=== PATIENT | male | born 1955 | race Caucasian/White ===

== ENCOUNTER 2017-02-04 00:54 | Inpatient (IN) | payer MEDICAID ==
[~2017-02-04] VITALS: Ht 177.8 cm; Wt 90.0 kg
--- NOTE | ~2017-02-04 | CN ---
PATIENT NAME:EDWIGE KRISHNAN MEDICAL RECORD: [id number] : 51 LOCATION:[id number] ADMIT DATE: 02/04/17 ACCOUNT: [id number] CONSULTING PHYSICIAN: ANNIE VENEGAS MD REFERRING PHYSICIAN: GILMA RAMOS MD DATE OF CONSULTATION: 02/12/2017 IDENTIFYING DATA: The patient is 61 years old and he is admitted to the hospital on a voluntary basis. CHIEF COMPLAINT: "My belly hurts." HISTORY OF PRESENT ILLNESS: The patient is a very unfortunate man, who is a long-term alcoholic. He had a girlfriend who lived with him for more than 3 decades and they both drank excessively. She 3 weeks ago. I am not clear about the circumstances, but I believe it was related to alcohol abuse. The patient is clearly very depressed. He cries, he says that he does not care if he lives or dies, but denies that he would seek to harm himself or others. He has a number of serious medical problems including hypokalemia, hyperbilirubinemia, anemia, and acute renal failure. The patient also has some significantly abnormal liver functions, also almost certainly associated with alcohol abuse. He has been making a number of confused even delusional statements about not knowing he is in the hospital, thinking he is in a car and needs to get out of the car. He remembers that his girlfriend is at this point, but earlier he did not have any recollection of this. MENTAL STATUS EXAMINATION: The patient is awake, alert and oriented to person, place and somewhat to time and situation. His mood is depressed. His affect is constricted. Thought processes are circumstantial. Memory, concentration and abstraction abilities are at least moderately impaired. He denies thoughts of harming himself or others as well as overt psychotic symptoms. ASSESSMENT: 1. Major depression. 2. Alcoholism. 3. Alcohol-related dementia. 4. Delirium secondary to multiple medical factors. PLAN: At this time, the patient is not acutely dangerous in some direct way. His complaints of abdominal pain seem excessive, but it may certainly be related to some low level pancreatitis or other gastrointestinal issue. I do not detect any history of narcotic addiction, but certainly the alcoholism is a major factor in his current presentation. He has been in the hospital too long for this to be an alcohol withdrawal delirium. I suspect that many of these symptoms are related to his underlying toxic metabolic abnormalities and the fact that he is just profoundly depressed. I am going to start him on an antidepressant and an oral antipsychotic to help organize his thoughts. At this point, it would be appropriate for him to go to a behavioral unit, although I doubt he would be willing to go on a voluntary basis and at this point, he is far too medically sick to be admitted. He is nonambulatory. He cannot feed himself. Unfortunately, it would seem that once he is calm, the most likely setting that he is going to end up in is a alf. I did not approach this subject with him since he does not know me, he is clearly upset and he is telling me about how much he misses his girlfriend and hates that she has . His long-term prognosis is guarded. I think the initial goals would be to CONSULT REPORT [id number] EDWIGE KRISHNAN address his medical and neurologic issues of course and then start him on the antidepressant and try and calm him enough so that he could be placed in a long-term care facility. TRANSINT:[id number] Voice Confirmation ID: [id number] DOCUMENT ID: [id number] ANNIE VENEGAS MD at 0944 CC: [id number] DICTATION DATE: 02/12/17 1255 STEPDOWN NURSE: 02/12/17 1319 ADM IN [facility] [address] [place] [address]
--- NOTE | ~2017-02-04 | HP ---
PATIENT: EDWIGE KRISHNAN MEDICAL RECORD: [id number] ACCOUNT: [id number] LOCATION:[id number] : 51 ADMISSION DATE: 02/04/17 HISTORY AND PHYSICAL EXAMINATION REASON FOR ADMISSION: Vomiting, abdominal pain, and intoxication. HISTORY OF PRESENT ILLNESS: The patient is a 61-year-old male. He has previously been seen at [facility]. He was there approximately a month ago for chest pain, but signed out AMA twice. Ultimately, he was seen by cardio and was felt to have a GI source for his chest pain, but did not allow EGD. He had an ultrasound of his liver at that time, which showed hepatic steatosis. He apparently has been more distraught recently, he said his significant other of 30 years of alcoholism a few weeks ago. He stated for last 2 days, he has had nausea with some vomiting, but no hematemesis or diarrhea or melena. He states he is unable to eat or drink and just feels very fatigued. He was seen by the ED physician who felt the patient needed to be hospitalized because of intoxication and abnormal laboratory work including hemoglobin of 9.2, potassium of 3.2, magnesium of 1, calcium 5.3, bilirubin of 3.53. His blood alcohol level is 179. PAST MEDICAL HISTORY: Obtained from [facility]; chronic alcoholism with alcohol abuse, tobacco abuse, essential hypertension, hypothyroidism, GERD, parathyroidectomy, atypical chest pain, and essential hypertension, obstructive sleep apnea, alcoholic liver disease, paroxysmal atrial fib, chronic systolic congestive heart failure. PAST SURGICAL HISTORY: Appendectomy, parathyroidectomy, thyroidectomy, cataract extraction bilateral eyes. SOCIAL HISTORY: Significant other just he states. He is a current smoker, half pack a day and drinks 21 shots of liquor i.e. vodka a week, but says he is not an alcoholic. Denies other drug use. FAMILY HISTORY: Mother of alcoholism. Father's history is unknown. He said he has some family living in the [facility]. MEDICATIONS: He is unsure of his meds currently, but list from [facility] shows vitamin E 50,000 units weekly, cyanocobalamin 100 mcg tablet p.o. daily, calcium carbonate 500 mg p.o. b.i.d., calcitriol 0.5 mcg capsule b.i.d., famotidine 20 mg p.o. b.i.d., atorvastatin 80 mg at bedtime, carvedilol 3.125 mg p.o. b.i.d., thiamine 100 mg p.o. daily, albuterol sulfate inhaler 1-2 puff p.o. inhaled p.r.n. shortness of breath q.4-6 hours, and aspirin 81 mg daily. REVIEW OF SYSTEMS: GENERAL: The patient does feels fatigued and vomiting for 2 days. He denies fever. HEENT: No recent visual change, sinus congestion. Does complain of sore throat. RESPIRATORY: No SOB or cough. CARDIAC: No exertional chest pain, claudication, or edema. GASTROINTESTINAL: Nausea with vomiting as mentioned. No hemetemesis, melena, change in stools, blood per rectum, or severe abdominal pain. GENITOURINARY: Nocturia once nightly. Denies dysuria. ENDOCRINE: Denies polyuria, polydipsia, heat or cold intolerance. HISTORY AND PHYSICAL [id number] EDWIGE KRISHNAN NEUROLOGIC: Denies headache, confusion, motor or sensory deficits. MUSCULOSKELETAL: Complains of chronic low back pain. PSYCHIATRIC: Admits to some depressed mood. PHYSICAL EXAMINATION: VITAL SIGNS: Blood pressure 110/70, heart rate 90 and regular, respirations are 18, sats 94% on room air. GENERAL: The patient is disheveled appearing, but awake and answering questions appropriately. HEENT: Normocephalic. Eyes are clear with lens implants both eyes. His sclerae are somewhat icteric. Oropharynx shows dry mucous membranes, erythema in the posterior pharynx. No blood in the pharynx noted. NECK: Supple, without bruits. CHEST: Distant breath sounds without wheeze. HEART: Regular rate without murmur. ABDOMEN: Mildly distended, minimally tender in the epigastrium. Bowel sounds are hyperactive. He has active stool in the bed, which is brown. EXTREMITIES: No CC&E. NEUROLOGICAL: He is oriented to person and place, but not time. No motor deficits are appreciated. Gait was not testable. SKIN: Nonicteric. LABORATORY DATA AND DIAGNOSTIC STUDIES: His UA is slightly cloudy, specific gravity 1.025, 1+ protein, 2+ bilirubin, 0-5 white and red cells, moderate bacteria. Ammonia is 12. White count 6800, H&H is 9.2 and 27.1, platelet count 101,000. Potassium is 3.2, BUN and creatinine are 51 and 2.5, and calcium is 5.3. Bilirubin is 3.52 total. AST is 328, ALT is 111, alkaline phosphatase is 151. Alcohol quantitative is 179.0. IMAGING: Noncontrast CT of the brain shows no infarct. Noncontrast abdominal CT shows some sludge in the gallbladder, hepatic steatosis, otherwise unremarkable. ASSESSMENT: 1. [id number] alcoholism with intoxication. 2. Acute renal insufficiency, etiology unknown, possibly due to prerenal azotemia. 3. Malnutrition. 4. Thrombocytopenia, most likely due to alcoholic liver disease. 5. Gastroesophageal reflux disease. 6. Essential hypertension. 7. Anemia, etiology unknown. 8. Hypocalcemia with history of parathyroidectomy just likely due to medication noncompliance. 3. History of systolic dysfunction with EF of 40% on echo 2010 with moderate MR and AR. PLAN: The patient will be hydrated and placed on banana bag. He will have renal consult, electrolytes correction, further workup pending clinical course. TRANSINT:[id number] Voice Confirmation ID: [id number] DOCUMENT ID: [id number] HISTORY AND PHYSICAL [id number] EDWIGE KRISHNAN TIMOTHY MD at 0554 CC: [id number] DICTATION DATE: 02/04/17828 [employer]: 02/04/17 1057 ADM IN [facility] [address] [place] [address]
[2017-02-04 01:42] LABS: BASOPHILS 0.3 % (0-2); EOSINOPHILS 0 % (0-7); HEMATOCRIT 27.1 % (42.0-54.0); HEMOGLOBIN 9.2 g/dL (13.5-17.5); IMMATURE GRANULOCYTES 1.6 % (0-5); LYMPHOCYTES 13.5 % (15-50); MCH 33.8 pg (26.0-34.0); MCHC 33.9 g/dL (31.0-37.0); MCV 99.6 fL (80.0-100.0); MEAN PLATELET VOLUME 11.3 fL (7.4-10.4); MONOCYTES 7.1 % (2-11); NEUTROPHILS 77.5 % (40-80); PLATELET COUNT 101 10x3/uL (130-400); RBC 2.72 10x6/uL (4.20-6.10); RDW 17.6 % (11.5-14.5); WBC 6.8 10x3/uL (4.8-10.8)
[2017-02-04 01:55] LABS: ALBUMIN 3.7 g/dL (3.4-5.0); ANION GAP 27.8 mmol/L (8-16); BILIRUBIN - TOTAL 3.52 mg/dL (0.2-1.3); CARBON DIOXIDE 21.4 mmol/L (21.0-32.0); CREATININE - SERUM 2.5 mg/dL (0.6-1.3); POTASSIUM - SERUM 3.2 mmol/L (3.5-5.1); PROTEIN - SERUM 7.9 g/dL (6.4-8.2)
[2017-02-04 02:00] LABS: CALCIUM 5.3 mg/dL (8.5-10.1)
[2017-02-04 04:03] LABS: UDS - AMPHET NEGATIVE QUAL (NEGATIVE); UDS - BARB NEGATIVE QUAL (NEGATIVE); UDS - BENZO NEGATIVE QUAL (NEGATIVE); UDS - COCAINE NEGATIVE QUAL (NEGATIVE); UDS - OPIATE NEGATIVE QUAL (NEGATIVE); UDS - PCP NEGATIVE QUAL (NEGATIVE); UDS - THC NEGATIVE QUAL (NEGATIVE)
[2017-02-04 04:04] LABS: APPEARANCE SLT CLOUDY (CLEAR); BILIRUBIN 2+ (NEGATIVE); COLOR DK YELLOW (YELLOW); GLUCOSE NEGATIVE (NEGATIVE); KETONE NEGATIVE (NEGATIVE); NITRITE NEGATIVE (NEGATIVE); PROTEIN 1+ mg/dL (NEGATIVE); SPECIFIC GRAVITY 1.025 (1.005-1.020)
[2017-02-04 04:06] LABS: BACTERIA MODERATE /hpf (NONE SEEN); EPITHELIAL CELLS 0-5 /hpf (0-5); GRANULAR CAST 0-5 /lpf (NONE SEEN); HYALINE CAST 0-5 /lpf (NONE SEEN); RED CELLS - URINE 0-5 /hpf (0-5); WHITE CELLS - URINE 0-5 /hpf (0-5)
[2017-02-04 14:28] LABS: BASOPHILS 0.1 % (0-2); EOSINOPHILS 0 % (0-7); HEMATOCRIT 26.8 % (42.0-54.0); HEMOGLOBIN 8.9 g/dL (13.5-17.5); IMMATURE GRANULOCYTES 1.2 % (0-5); LYMPHOCYTES 6.6 % (15-50); MCHC 33.2 g/dL (31.0-37.0); MEAN PLATELET VOLUME 10.6 fL (7.4-10.4); MONOCYTES 6.8 % (2-11); NEUTROPHILS 85.3 % (40-80); PLATELET COUNT 88 10x3/uL (130-400); RBC 2.62 10x6/uL (4.20-6.10); RDW 17.7 % (11.5-14.5); WBC 7.7 10x3/uL (4.8-10.8)
[2017-02-04 14:31] LABS: MCV 102.3 fL (80.0-100.0)
[2017-02-04 14:46] LABS: PLATELET ESTIMATE DECREASED
[2017-02-04 14:50] LABS: ALBUMIN 3.3 g/dL (3.4-5.0); ANION GAP 24.3 mmol/L (8-16); BILIRUBIN - TOTAL 4.42 mg/dL (0.2-1.3); CARBON DIOXIDE 20.8 mmol/L (21.0-32.0); POTASSIUM - SERUM 3.1 mmol/L (3.5-5.1); PROTEIN - SERUM 7.1 g/dL (6.4-8.2)
[2017-02-04 14:51] LABS: CREATININE - SERUM 1.7 mg/dL (0.6-1.3); MAGNESIUM - SERUM 2.1 mg/dL (1.8-2.4)
[2017-02-04 14:55] LABS: CALCIUM 4.8 mg/dL (8.5-10.1)
[2017-02-04 15:50] VITALS: BP 102/58
[2017-02-04 18:14] VITALS: BP 102/58; BMI 23.0
[2017-02-04 20:00] VITALS: BP 138/84
[2017-02-04] MEDS ORDERED: ASPIRIN81 MG PO (20:16)
[2017-02-04] MEDS ORDERED: COREG 3.1253.125 MG PO (20:16)
[2017-02-04] MEDS ORDERED: PEPCID20 MG PO (20:17)
[2017-02-04] MEDS ORDERED: LIPITOR80 MG PO (20:17)
[2017-02-04] MEDS ORDERED: SYNTHROID75 MCG PO (20:18)
[2017-02-04] MEDS ORDERED: LISINOPRIL5 MG PO (20:19)
[2017-02-05 04:00] VITALS: BP 159/76
[2017-02-05 05:41] LABS: BASOPHILS 0.2 % (0-2); EOSINOPHILS 0.2 % (0-7); HEMATOCRIT 26.1 % (42.0-54.0); HEMOGLOBIN 8.7 g/dL (13.5-17.5); IMMATURE GRANULOCYTES 0.8 % (0-5); LYMPHOCYTES 10.5 % (15-50); MCH 34.5 pg (26.0-34.0); MCHC 33.3 g/dL (31.0-37.0); MCV 103.6 fL (80.0-100.0); MEAN PLATELET VOLUME 12.2 fL (7.4-10.4); MONOCYTES 7.1 % (2-11); NEUTROPHILS 81.2 % (40-80); RBC 2.52 10x6/uL (4.20-6.10); RDW 17.8 % (11.5-14.5); WBC 6.4 10x3/uL (4.8-10.8)
[2017-02-05 05:47] LABS: PLATELET COUNT 109 10x3/uL (130-400)
[2017-02-05 05:59] LABS: APTT 30.4 SECONDS (22.8-39.4); INR 1.31 (0.85-1.17); PROTIME 15.9 SECONDS (11.6-15.0)
[2017-02-05 06:08] LABS: ALBUMIN 3.2 g/dL (3.4-5.0); ANION GAP 19.8 mmol/L (8-16); BILIRUBIN - TOTAL 4.46 mg/dL (0.2-1.3); CARBON DIOXIDE 23.7 mmol/L (21.0-32.0); CREATININE - SERUM 1.8 mg/dL (0.6-1.3); POTASSIUM - SERUM 3.5 mmol/L (3.5-5.1)
[2017-02-05 06:30] LABS: CALCIUM 5.6 mg/dL (8.5-10.1)
[2017-02-05 12:24] VITALS: BP 113/53
[2017-02-05 13:16] LABS: HEPATITIS C ANTIBODY <0.1 (0.0-0.9)
[2017-02-05 13:39] VITALS: BMI 22.9
[2017-02-05 14:00] VITALS: Ht 177.8 cm; Wt 90.0 kg
[2017-02-05 15:00] VITALS: BP 120/64
[2017-02-05 19:30] VITALS: BP 117/61
[2017-02-06 03:30] VITALS: BP 124/72
[2017-02-06 04:38] LABS: BASOPHILS 0.2 % (0-2); EOSINOPHILS 0.4 % (0-7); HEMATOCRIT 30.5 % (42.0-54.0); HEMOGLOBIN 10.2 g/dL (13.5-17.5); IMMATURE GRANULOCYTES 0.8 % (0-5); LYMPHOCYTES 14.4 % (15-50); MCHC 33.4 g/dL (31.0-37.0); MCV 101.7 fL (80.0-100.0); MEAN PLATELET VOLUME 12.5 fL (7.4-10.4); NEUTROPHILS 77.2 % (40-80); PLATELET COUNT 96 10x3/uL (130-400); RDW 18.4 % (11.5-14.5)
[2017-02-06 04:42] LABS: WBC 4.7 10x3/uL (4.8-10.8)
[2017-02-06 05:14] LABS: ALBUMIN 3.1 g/dL (3.4-5.0); ANION GAP 18.7 mmol/L (8-16); BILIRUBIN - TOTAL 6.1 mg/dL (0.2-1.3); CARBON DIOXIDE 23.9 mmol/L (21.0-32.0); CREATININE - SERUM 2.2 mg/dL (0.6-1.3); POTASSIUM - SERUM 3.6 mmol/L (3.5-5.1); PROTEIN - SERUM 7.1 g/dL (6.4-8.2); THYROID STIMULATING HORMONE 5.94 uIU/mL (0.36-3.74)
[2017-02-06 05:17] LABS: CALCIUM 5.5 mg/dL (8.5-10.1)
[2017-02-06 15:01] VITALS: BP 136/93
[2017-02-06 15:25] LABS: APPEARANCE HAZY (CLEAR); BILIRUBIN NEGATIVE (NEGATIVE); COLOR AMBER (YELLOW); GLUCOSE NEGATIVE (NEGATIVE); KETONE NEGATIVE (NEGATIVE); NITRITE NEGATIVE (NEGATIVE); PROTEIN 2+ mg/dL (NEGATIVE); SPECIFIC GRAVITY 1.005 (1.005-1.020); UROBILINOGEN NORMAL (NORMAL)
[2017-02-06 15:28] LABS: WHITE CELLS - URINE 0-5 /hpf (0-5)
[2017-02-06 15:29] LABS: BACTERIA MODERATE /hpf (NONE SEEN); TRIPLE PHOSPHATE CRYSTALS >50 /hpf (NONE SEEN)
[2017-02-06 19:30] VITALS: BP 127/93
[2017-02-07] VITALS (7 sets, daily range): BP systolic 119–140; BP diastolic 55–87
[2017-02-07 05:27] LABS: BASOPHILS 0.5 % (0-2); EOSINOPHILS 1.3 % (0-7); HEMATOCRIT 32.3 % (42.0-54.0); HEMOGLOBIN 10.7 g/dL (13.5-17.5); LYMPHOCYTES 14.3 % (15-50); MCH 33.8 pg (26.0-34.0); MCHC 33.1 g/dL (31.0-37.0); MCV 101.9 fL (80.0-100.0); MEAN PLATELET VOLUME 13.8 fL (7.4-10.4); NEUTROPHILS 73.9 % (40-80); PLATELET COUNT 107 10x3/uL (130-400); RBC 3.17 10x6/uL (4.20-6.10); RDW 19.1 % (11.5-14.5)
[2017-02-07 05:33] LABS: WBC 6.1 10x3/uL (4.8-10.8)
[2017-02-07 05:59] LABS: ANION GAP 18.5 mmol/L (8-16); BILIRUBIN - TOTAL 6.8 mg/dL (0.2-1.3); CREATININE - SERUM 2.1 mg/dL (0.6-1.3); POTASSIUM - SERUM 3.5 mmol/L (3.5-5.1); PROTEIN - SERUM 6.9 g/dL (6.4-8.2)
[2017-02-07 06:04] LABS: CALCIUM 5.4 mg/dL (8.5-10.1)
[2017-02-07 06:21] LABS: INR 1.45 (0.85-1.17); PROTIME 17.2 SECONDS (11.6-15.0)
[2017-02-08 04:01] VITALS: BP 137/82
[2017-02-08 04:04] LABS: BASOPHILS 0.2 % (0-2); EOSINOPHILS 1.4 % (0-7); HEMOGLOBIN 10.8 g/dL (13.5-17.5); IMMATURE GRANULOCYTES 1.1 % (0-5); LYMPHOCYTES 15.1 % (15-50); MCH 34.8 pg (26.0-34.0); MCHC 33.8 g/dL (31.0-37.0); MCV 103.2 fL (80.0-100.0); MEAN PLATELET VOLUME 12.6 fL (7.4-10.4); NEUTROPHILS 70.2 % (40-80); PLATELET COUNT 112 10x3/uL (130-400); RDW 19.1 % (11.5-14.5); WBC 6.5 10x3/uL (4.8-10.8)
[2017-02-08 04:11] LABS: INR 1.38 (0.85-1.17); PROTIME 16.5 SECONDS (11.6-15.0)
[2017-02-08 04:17] LABS: ALBUMIN 2.8 g/dL (3.4-5.0); ANION GAP 16.2 mmol/L (8-16); BILIRUBIN - DIRECT 4.93 mg/dL (0.00-0.30); BILIRUBIN - INDIRECT 0.87 mg/dL (0.00-1.00); BILIRUBIN - TOTAL 5.8 mg/dL (0.2-1.3); CARBON DIOXIDE 23.9 mmol/L (21.0-32.0); CREATININE - SERUM 1.7 mg/dL (0.6-1.3); POTASSIUM - SERUM 3.1 mmol/L (3.5-5.1); PROTEIN - SERUM 6.5 g/dL (6.4-8.2)
[2017-02-08 04:21] LABS: CALCIUM 5.4 mg/dL (8.5-10.1)
[2017-02-08 08:10] LABS: MAGNESIUM - SERUM 2.5 mg/dL (1.8-2.4); PHOSPHOROUS 3.9 mg/dL (2.5-4.9)
[2017-02-08 08:21] VITALS: BP 137/86
[2017-02-08 13:24] VITALS: BP 135/77
[2017-02-08 16:07] VITALS: BP 125/86
[2017-02-08 20:00] VITALS: BP 129/79
[2017-02-09 04:00] VITALS: BP 119/78
[2017-02-09 05:50] LABS: ANION GAP 17.3 mmol/L (8-16); BASOPHILS 0.3 % (0-2); CARBON DIOXIDE 19.6 mmol/L (21.0-32.0); CREATININE - SERUM 1.4 mg/dL (0.6-1.3); EOSINOPHILS 1.3 % (0-7); HEMATOCRIT 32.6 % (42.0-54.0); HEMOGLOBIN 10.5 g/dL (13.5-17.5); IMMATURE GRANULOCYTES 1.5 % (0-5); LYMPHOCYTES 15.7 % (15-50); MAGNESIUM - SERUM 2.2 mg/dL (1.8-2.4); MCH 33.8 pg (26.0-34.0); MCHC 32.2 g/dL (31.0-37.0); MCV 104.8 fL (80.0-100.0); MEAN PLATELET VOLUME 13.6 fL (7.4-10.4); MONOCYTES 14.7 % (2-11); NEUTROPHILS 66.5 % (40-80); PHOSPHOROUS 3.4 mg/dL (2.5-4.9); PLATELET COUNT 104 10x3/uL (130-400); POTASSIUM - SERUM 3.9 mmol/L (3.5-5.1); RBC 3.11 10x6/uL (4.20-6.10); RDW 19.9 % (11.5-14.5); WBC 5.9 10x3/uL (4.8-10.8)
[2017-02-09 05:58] LABS: CALCIUM 5.6 mg/dL (8.5-10.1)
[2017-02-09 07:10] VITALS: BP 128/74
[2017-02-09 08:37] LABS: ALBUMIN 2.8 g/dL (3.4-5.0); BILIRUBIN - DIRECT 4.37 mg/dL (0.00-0.30); BILIRUBIN - INDIRECT 1.03 mg/dL (0.00-1.00); BILIRUBIN - TOTAL 5.4 mg/dL (0.2-1.3); PROTEIN - SERUM 6.1 g/dL (6.4-8.2)
[2017-02-09 10:38] LABS: INR 1.29 (0.85-1.17); PROTIME 15.6 SECONDS (11.6-15.0)
[2017-02-09 15:01] VITALS: BP 112/82
[2017-02-09 20:00] VITALS: BP 131/80
[2017-02-10 05:42] LABS: BASOPHILS 0.2 % (0-2); EOSINOPHILS 1.1 % (0-7); HEMATOCRIT 31.8 % (42.0-54.0); HEMOGLOBIN 10.5 g/dL (13.5-17.5); IMMATURE GRANULOCYTES 1.6 % (0-5); LYMPHOCYTES 14.4 % (15-50); MCH 34.1 pg (26.0-34.0); MCV 103.2 fL (80.0-100.0); MONOCYTES 14.6 % (2-11); NEUTROPHILS 68.1 % (40-80); PLATELET COUNT 115 10x3/uL (130-400); RBC 3.08 10x6/uL (4.20-6.10); RDW 19.5 % (11.5-14.5); WBC 4.5 10x3/uL (4.8-10.8)
[2017-02-10 05:55] LABS: INR 1.25 (0.85-1.17); PROTIME 15.2 SECONDS (11.6-15.0)
[2017-02-10 06:04] LABS: ALBUMIN 2.5 g/dL (3.4-5.0); ANION GAP 13.2 mmol/L (8-16); BILIRUBIN - DIRECT 3.75 mg/dL (0.00-0.30); BILIRUBIN - INDIRECT 0.75 mg/dL (0.00-1.00); BILIRUBIN - TOTAL 4.5 mg/dL (0.2-1.3); CARBON DIOXIDE 22.3 mmol/L (21.0-32.0); CREATININE - SERUM 1.3 mg/dL (0.6-1.3); POTASSIUM - SERUM 3.5 mmol/L (3.5-5.1); PROTEIN - SERUM 6.2 g/dL (6.4-8.2)
[2017-02-10 06:38] LABS: CALCIUM 5.8 mg/dL (8.5-10.1)
[2017-02-10 08:08] VITALS: BP 136/78
[2017-02-10 13:08] VITALS: BP 142/81
[2017-02-10 16:02] VITALS: BP 143/75
[2017-02-10 20:00] VITALS: BP 138/78
[2017-02-11 04:00] VITALS: BP 136/84
[2017-02-11 08:14] VITALS: BP 146/80
[2017-02-11 13:19] VITALS: BP 155/86
[2017-02-11 15:43] VITALS: BP 147/86
[2017-02-11 20:00] VITALS: BP 116/81
[2017-02-12] VITALS (7 sets, daily range): BP systolic 122–159; BP diastolic 76–91
[2017-02-12 05:34] LABS: BASOPHILS 0.3 % (0-2); EOSINOPHILS 1.2 % (0-7); HEMATOCRIT 34.1 % (42.0-54.0); HEMOGLOBIN 11.2 g/dL (13.5-17.5); IMMATURE GRANULOCYTES 0.6 % (0-5); LYMPHOCYTES 14.5 % (15-50); MCH 33.8 pg (26.0-34.0); MCHC 32.8 g/dL (31.0-37.0); MONOCYTES 11.1 % (2-11); NEUTROPHILS 72.3 % (40-80); RBC 3.31 10x6/uL (4.20-6.10); RDW 19.1 % (11.5-14.5)
[2017-02-12 05:36] LABS: PLATELET COUNT 149 10x3/uL (130-400); WBC 6.4 10x3/uL (4.8-10.8)
[2017-02-12 05:51] LABS: ALBUMIN 2.7 g/dL (3.4-5.0); ANION GAP 14.3 mmol/L (8-16); BILIRUBIN - DIRECT 3.16 mg/dL (0.00-0.30); BILIRUBIN - INDIRECT 1.04 mg/dL (0.00-1.00); BILIRUBIN - TOTAL 4.2 mg/dL (0.2-1.3); CARBON DIOXIDE 22.1 mmol/L (21.0-32.0); CREATININE - SERUM 1.1 mg/dL (0.6-1.3); POTASSIUM - SERUM 3.4 mmol/L (3.5-5.1); PROTEIN - SERUM 6.6 g/dL (6.4-8.2)
[2017-02-12 05:54] LABS: CALCIUM 6.3 mg/dL (8.5-10.1)
[2017-02-12 12:15] LABS: AEROBE ID Final report (())
[2017-02-13 03:30] VITALS: BP 137/74
[2017-02-13 07:03] VITALS: BP 144/80
[2017-02-13 11:10] VITALS: BP 144/75
[2017-02-13 14:58] VITALS: BP 152/84
[2017-02-13 20:00] VITALS: BP 178/76
[2017-02-14] VITALS: BP 169/75
[2017-02-14 04:30] LABS: BASOPHILS 0.4 % (0-2); HEMATOCRIT 32.1 % (42.0-54.0); HEMOGLOBIN 10.6 g/dL (13.5-17.5); IMMATURE GRANULOCYTES 0.6 % (0-5); LYMPHOCYTES 15.6 % (15-50); MCH 34.1 pg (26.0-34.0); MCV 103.2 fL (80.0-100.0); MEAN PLATELET VOLUME 12.1 fL (7.4-10.4); MONOCYTES 9.3 % (2-11); NEUTROPHILS 73.1 % (40-80); RBC 3.11 10x6/uL (4.20-6.10); RDW 18.9 % (11.5-14.5); WBC 6.9 10x3/uL (4.8-10.8)
[2017-02-14 04:34] LABS: PLATELET COUNT 183 10x3/uL (130-400)
[2017-02-14 04:49] LABS: ALBUMIN 2.5 g/dL (3.4-5.0); ALKALINE PHOSPHATASE 336 U/L (46-116); ALT (SGPT) 122 U/L (10-68); BILIRUBIN - DIRECT 2.34 mg/dL (0.00-0.30); BILIRUBIN - INDIRECT 0.85 mg/dL (0.00-1.00); BILIRUBIN - TOTAL 3.19 mg/dL (0.2-1.3); CARBON DIOXIDE 24.6 mmol/L (21.0-32.0); CHLORIDE - SERUM 108 mmol/L (98-107); CREATININE - SERUM 0.9 mg/dL (0.6-1.3); GLUCOSE 95 mg/dL (74-106); MAGNESIUM - SERUM 1.2 mg/dL (1.8-2.4); POTASSIUM - SERUM 4.2 mmol/L (3.5-5.1); PROTEIN - SERUM 5.8 g/dL (6.4-8.2); SODIUM 143 mmol/L (136-145); eGFR NON AFRICAN AMERICAN > 90 mL/min (90-120)
[2017-02-14 05:00] VITALS: BP 166/70
[2017-02-14 05:03] LABS: CALC OSMOLALITY 285 mosm/kg (275-300); UREA NITROGEN 15 mg/dL (7-18)
[2017-02-14 09:02] VITALS: BP 155/75
[2017-02-14 11:49] VITALS: BP 139/72
[2017-02-14 16:07] LABS: AEROBE ID Final report (()); RESULT 1 Aerococcus urinae (())
[2017-02-14 16:49] VITALS: BP 165/85
[2017-02-14 20:00] VITALS: BP 143/75
[2017-02-15 04:00] VITALS: BP 149/70
[2017-02-15 05:49] LABS: MAGNESIUM - SERUM 1.3 mg/dL (1.8-2.4); PHOSPHOROUS 3.4 mg/dL (2.5-4.9)
[2017-02-15 07:13] VITALS: BP 158/86
[2017-02-15 11:02] VITALS: BP 137/74
[2017-02-15 14:50] LABS: AMYLASE - SERUM 94 U/L (25-115); LIPASE 551 U/L (73-393)
[2017-02-15 15:04] VITALS: BP 133/67
[2017-02-15 19:30] VITALS: BP 135/84
[2017-02-15 23:49] VITALS: BP 133/66
[2017-02-16 03:58] VITALS: BP 139/69
[2017-02-16 05:58] LABS: BASOPHILS 0.4 % (0-2); EOSINOPHILS 0.9 % (0-7); HEMATOCRIT 31.4 % (42.0-54.0); HEMOGLOBIN 10.2 g/dL (13.5-17.5); LYMPHOCYTES 14.9 % (15-50); MCH 34.2 pg (26.0-34.0); MCHC 32.5 g/dL (31.0-37.0); MCV 105.4 fL (80.0-100.0); MEAN PLATELET VOLUME 10.9 fL (7.4-10.4); MONOCYTES 9.3 % (2-11); NEUTROPHILS 73.5 % (40-80); PLATELET COUNT 199 10x3/uL (130-400); RBC 2.98 10x6/uL (4.20-6.10); RDW 18.1 % (11.5-14.5); WBC 7.7 10x3/uL (4.8-10.8)
[2017-02-16 07:19] LABS: ALBUMIN 2.2 g/dL (3.4-5.0); ALKALINE PHOSPHATASE 239 U/L (46-116); ALT (SGPT) 82 U/L (10-68); BILIRUBIN - TOTAL 1.63 mg/dL (0.2-1.3); CALC OSMOLALITY 280 mosm/kg (275-300); CARBON DIOXIDE 28.5 mmol/L (21.0-32.0); CHLORIDE - SERUM 106 mmol/L (98-107); GLUCOSE 81 mg/dL (74-106); PHOSPHOROUS 3.5 mg/dL (2.5-4.9); POTASSIUM - SERUM 3.9 mmol/L (3.5-5.1); PROTEIN - SERUM 5.8 g/dL (6.4-8.2); SODIUM 141 mmol/L (136-145); UREA NITROGEN 14 mg/dL (7-18); eGFR NON AFRICAN AMERICAN 80 mL/min (90-120)
[2017-02-16 07:22] LABS: CALCIUM 6.6 mg/dL (8.5-10.1)
[2017-02-16 09:32] VITALS: BP 125/68
[2017-02-16 13:27] VITALS: BP 122/61
[2017-02-16 16:41] VITALS: BP 125/70
[2017-02-16 23:00] VITALS: BP 140/78
[2017-02-17 02:30] VITALS: BP 133/72
[2017-02-17 05:00] VITALS: BP 144/70
[2017-02-17 06:49] LABS: BASOPHILS 0.1 % (0-2); EOSINOPHILS 0.9 % (0-7); IMMATURE GRANULOCYTES 0.6 % (0-5); LYMPHOCYTES 12.6 % (15-50); MCH 33.6 pg (26.0-34.0); MCHC 32.3 g/dL (31.0-37.0); MEAN PLATELET VOLUME 10.9 fL (7.4-10.4); MONOCYTES 8.5 % (2-11); NEUTROPHILS 77.3 % (40-80); PLATELET COUNT 208 10x3/uL (130-400); RBC 2.98 10x6/uL (4.20-6.10); RDW 17.9 % (11.5-14.5)
[2017-02-17 07:20] LABS: ALKALINE PHOSPHATASE 200 U/L (46-116); ALT (SGPT) 63 U/L (10-68); CARBON DIOXIDE 29.3 mmol/L (21.0-32.0); CHLORIDE - SERUM 105 mmol/L (98-107); CREATININE - SERUM 0.8 mg/dL (0.6-1.3); GLUCOSE 103 mg/dL (74-106); LIPASE 656 U/L (73-393); PHOSPHOROUS 2.7 mg/dL (2.5-4.9); POTASSIUM - SERUM 3.9 mmol/L (3.5-5.1); PROTEIN - SERUM 5.5 g/dL (6.4-8.2); SODIUM 140 mmol/L (136-145); eGFR NON AFRICAN AMERICAN > 90 mL/min (90-120)
[2017-02-17 07:30] LABS: AMYLASE - SERUM 119 U/L (25-115); CALC OSMOLALITY 280 mosm/kg (275-300); CALCIUM 6.9 mg/dL (8.5-10.1); MAGNESIUM - SERUM 1.4 mg/dL (1.8-2.4); UREA NITROGEN 18 mg/dL (7-18)
[2017-02-17 08:45] VITALS: BP 142/77
[2017-02-17 12:45] VITALS: BP 144/74
[2017-02-17 16:32] VITALS: BP 171/90
[2017-02-17 23:00] VITALS: BP 100/51
[2017-02-18 05:00] VITALS: BP 109/53
[2017-02-18 06:09] LABS: BASOPHILS 0.3 % (0-2); EOSINOPHILS 0.6 % (0-7); HEMATOCRIT 29.9 % (42.0-54.0); HEMOGLOBIN 9.8 g/dL (13.5-17.5); IMMATURE GRANULOCYTES 0.3 % (0-5); LYMPHOCYTES 10.8 % (15-50); MCH 34.1 pg (26.0-34.0); MCHC 32.8 g/dL (31.0-37.0); MCV 104.2 fL (80.0-100.0); MEAN PLATELET VOLUME 11.2 fL (7.4-10.4); MONOCYTES 7.1 % (2-11); NEUTROPHILS 80.9 % (40-80); PLATELET COUNT 210 10x3/uL (130-400); RBC 2.87 10x6/uL (4.20-6.10); RDW 17.3 % (11.5-14.5); WBC 8.6 10x3/uL (4.8-10.8)
[2017-02-18 06:42] LABS: ALBUMIN 2.3 g/dL (3.4-5.0); ALKALINE PHOSPHATASE 200 U/L (46-116); ALT (SGPT) 61 U/L (10-68); BILIRUBIN - TOTAL 1.47 mg/dL (0.2-1.3); CALC OSMOLALITY 277 mosm/kg (275-300); CALCIUM 7.8 mg/dL (8.5-10.1); CARBON DIOXIDE 32.2 mmol/L (21.0-32.0); CHLORIDE - SERUM 102 mmol/L (98-107); GLUCOSE 83 mg/dL (74-106); LIPASE 480 U/L (73-393); PHOSPHOROUS 2.9 mg/dL (2.5-4.9); PROTEIN - SERUM 5.7 g/dL (6.4-8.2); SODIUM 138 mmol/L (136-145); UREA NITROGEN 22 mg/dL (7-18); eGFR NON AFRICAN AMERICAN 80 mL/min (90-120)
[2017-02-18 06:46] LABS: POTASSIUM - SERUM 4.7 mmol/L (3.5-5.1)
[2017-02-18 09:16] LABS: APPEARANCE HAZY (CLEAR); BILIRUBIN NEGATIVE (NEGATIVE); COLOR YELLOW (YELLOW); GLUCOSE NEGATIVE (NEGATIVE); KETONE NEGATIVE (NEGATIVE); NITRITE NEGATIVE (NEGATIVE); PROTEIN NEGATIVE (NEGATIVE); UROBILINOGEN NORMAL (NORMAL)
[2017-02-18 09:18] LABS: BACTERIA MODERATE /hpf (NONE SEEN); EPITHELIAL CELLS 0-5 /hpf (0-5); MUCUS <1+ /lpf (NONE SEEN); YEAST >1+ WITH HYPHAE /hpf (NONE SEEN)
[2017-02-18 09:19] LABS: RED CELLS - URINE 0-5 /hpf (0-5)
[2017-02-18 12:45] VITALS: BP 152/64
[2017-02-18 16:56] VITALS: BP 110/56
[2017-02-18 20:00] VITALS: BP 107/50
[2017-02-19] VITALS: BP 126/62
[2017-02-19 04:00] VITALS: BP 120/62
[2017-02-19 07:05] LABS: BASOPHILS 0.5 % (0-2); EOSINOPHILS 0.8 % (0-7); HEMATOCRIT 28.5 % (42.0-54.0); HEMOGLOBIN 9.3 g/dL (13.5-17.5); IMMATURE GRANULOCYTES 0.2 % (0-5); MCH 33.7 pg (26.0-34.0); MCHC 32.6 g/dL (31.0-37.0); MCV 103.3 fL (80.0-100.0); MEAN PLATELET VOLUME 10.9 fL (7.4-10.4); NEUTROPHILS 79.5 % (40-80); PLATELET COUNT 192 10x3/uL (130-400); RBC 2.76 10x6/uL (4.20-6.10); RDW 16.9 % (11.5-14.5); WBC 8.3 10x3/uL (4.8-10.8)
[2017-02-19 07:26] LABS: ALBUMIN 2.4 g/dL (3.4-5.0); ANION GAP 7.5 mmol/L (8-16); BILIRUBIN - TOTAL 1.2 mg/dL (0.2-1.3); CALCIUM 7.9 mg/dL (8.5-10.1); CARBON DIOXIDE 33.6 mmol/L (21.0-32.0); CREATININE - SERUM 1.1 mg/dL (0.6-1.3); POTASSIUM - SERUM 4.1 mmol/L (3.5-5.1); PROTEIN - SERUM 6.2 g/dL (6.4-8.2)
[2017-02-19 07:59] VITALS: BP 157/94
[2017-02-19 12:23] VITALS: BP 140/73
[2017-02-19 15:52] VITALS: BP 130/66
[2017-02-19 20:00] VITALS: BP 142/70
[2017-02-20] VITALS: BP 139/69
[2017-02-20 05:00] VITALS: BP 144/72
[2017-02-20 05:30] LABS: ALBUMIN 2.3 g/dL (3.4-5.0); ALKALINE PHOSPHATASE 248 U/L (46-116); BILIRUBIN - TOTAL 1.31 mg/dL (0.2-1.3); CALC OSMOLALITY 276 mosm/kg (275-300); CALCIUM 7.9 mg/dL (8.5-10.1); CARBON DIOXIDE 30.4 mmol/L (21.0-32.0); CHLORIDE - SERUM 101 mmol/L (98-107); CREATININE - SERUM 0.9 mg/dL (0.6-1.3); GLUCOSE 111 mg/dL (74-106); PROTEIN - SERUM 6.2 g/dL (6.4-8.2); SODIUM 136 mmol/L (136-145); UREA NITROGEN 24 mg/dL (7-18); eGFR NON AFRICAN AMERICAN > 90 mL/min (90-120)
[2017-02-20 05:42] LABS: ALT (SGPT) 80 U/L (10-68); POTASSIUM - SERUM 5.2 mmol/L (3.5-5.1)
[2017-02-20 07:14] VITALS: BP 142/82
[2017-02-20 11:07] VITALS: BP 141/72
[2017-02-20 15:14] VITALS: BP 140/75
[2017-02-20 22:00] VITALS: BP 143/72
[2017-02-21 05:00] VITALS: BP 138/70
[2017-02-21 07:17] LABS: ANION GAP 8.9 mmol/L (8-16); CALCIUM 7.7 mg/dL (8.5-10.1); CARBON DIOXIDE 33.7 mmol/L (21.0-32.0); CREATININE - SERUM 1.1 mg/dL (0.6-1.3)
[2017-02-21 07:20] LABS: POTASSIUM - SERUM 3.6 mmol/L (3.5-5.1)
[2017-02-21 07:28] VITALS: BP 155/82
[2017-02-21 11:04] VITALS: BP 126/68
[2017-02-21 20:00] VITALS: BP 135/89
[2017-02-22] VITALS: BP 136/72
[2017-02-22 04:00] VITALS: BP 128/77
[2017-02-22 08:49] LABS: BASOPHILS 0.7 % (0-2); EOSINOPHILS 1.9 % (0-7); HEMATOCRIT 28.1 % (42.0-54.0); HEMOGLOBIN 9.3 g/dL (13.5-17.5); IMMATURE GRANULOCYTES 0.2 % (0-5); LYMPHOCYTES 18.5 % (15-50); MCH 33.8 pg (26.0-34.0); MCHC 33.1 g/dL (31.0-37.0); MCV 102.2 fL (80.0-100.0); MEAN PLATELET VOLUME 10.4 fL (7.4-10.4); MONOCYTES 10.8 % (2-11); NEUTROPHILS 67.9 % (40-80); PLATELET COUNT 179 10x3/uL (130-400); RBC 2.75 10x6/uL (4.20-6.10); RDW 16.2 % (11.5-14.5); WBC 5.7 10x3/uL (4.8-10.8)
[2017-02-22 08:51] VITALS: BP 155/74
[2017-02-22 09:03] LABS: ALBUMIN 2.4 g/dL (3.4-5.0); ALKALINE PHOSPHATASE 198 U/L (46-116); ALT (SGPT) 56 U/L (10-68); BILIRUBIN - TOTAL 1.15 mg/dL (0.2-1.3); CALC OSMOLALITY 278 mosm/kg (275-300); CALCIUM 7.8 mg/dL (8.5-10.1); CARBON DIOXIDE 34.4 mmol/L (21.0-32.0); CHLORIDE - SERUM 100 mmol/L (98-107); GLUCOSE 79 mg/dL (74-106); MAGNESIUM - SERUM 1.1 mg/dL (1.8-2.4); PHOSPHOROUS 3.5 mg/dL (2.5-4.9); POTASSIUM - SERUM 3.7 mmol/L (3.5-5.1); PROTEIN - SERUM 6.3 g/dL (6.4-8.2); SODIUM 139 mmol/L (136-145); UREA NITROGEN 19 mg/dL (7-18); eGFR NON AFRICAN AMERICAN 80 mL/min (90-120)
[2017-02-22 12:20] VITALS: BP 131/78
[2017-02-22 16:03] VITALS: BP 142/74
[2017-02-22 20:00] VITALS: BP 151/87
[2017-02-23] VITALS: BP 161/77
[2017-02-23 04:00] VITALS: BP 134/79
[2017-02-23 08:34] LABS: BASOPHILS 0.7 % (0-2); EOSINOPHILS 1.6 % (0-7); HEMATOCRIT 26.9 % (42.0-54.0); IMMATURE GRANULOCYTES 0.2 % (0-5); LYMPHOCYTES 17.8 % (15-50); MCH 33.8 pg (26.0-34.0); MCHC 33.5 g/dL (31.0-37.0); MCV 101.1 fL (80.0-100.0); MEAN PLATELET VOLUME 10.3 fL (7.4-10.4); MONOCYTES 9.8 % (2-11); NEUTROPHILS 69.9 % (40-80); PLATELET COUNT 175 10x3/uL (130-400); RBC 2.66 10x6/uL (4.20-6.10); RDW 16.2 % (11.5-14.5); WBC 5.5 10x3/uL (4.8-10.8)
[2017-02-23 09:01] LABS: ALBUMIN 2.4 g/dL (3.4-5.0); BILIRUBIN - TOTAL 1.13 mg/dL (0.2-1.3); CARBON DIOXIDE 34.7 mmol/L (21.0-32.0); CREATININE - SERUM 1.1 mg/dL (0.6-1.3); MAGNESIUM - SERUM 1.2 mg/dL (1.8-2.4); PHOSPHOROUS 3.7 mg/dL (2.5-4.9); POTASSIUM - SERUM 3.7 mmol/L (3.5-5.1); PROTEIN - SERUM 6.3 g/dL (6.4-8.2)
[2017-02-23 09:56] VITALS: BP 127/70
[2017-02-23 12:47] VITALS: BP 139/80
[2017-02-23] MEDS ORDERED: PROTONIX40 MG PO (13:51)
[2017-02-23] MEDS ORDERED: CARAFATE1 G/10 ML PO (13:52)
[2017-02-23] MEDS ORDERED: ROCALTROL0.25 MCG PO (13:52)
[2017-02-23] MEDS ORDERED: VITAMIN B-12100 MCG PO (13:52)
[2017-02-23] MEDS ORDERED: Vitamin D PO (13:52)
[2017-02-23] MEDS ORDERED: FOLIC ACID1 MG PO (13:53)
[2017-02-23] MEDS ORDERED: THERAGRAN M [BK1 TAB PO (13:53)
[2017-02-23] MEDS ORDERED: THIAMINE HCL50 MG PO (13:53)
[2017-02-23] MEDS ORDERED: LEXAPRO10 MG PO (13:53)
[2017-02-23] MEDS ORDERED: GEODON20 MG PO (13:54)
== END 2017-02-23 15:20 | disposition home health service (06) | DRG 896 ==
LOC: EDBD 00:54 → D.ER 00:54 → D.MS 05:58
PROVIDERS: Family Medicine; Internal Medicine Gastroenterology; Internal Medicine Nephrology
PROC: 0DB78ZX Excision of Stomach, Pylorus, Via Natural or Artificial Opening Endoscopic, Diagnostic (ICD-10-PCS; 2017-02-05)
PROC: 0DB98ZX Excision of Duodenum, Via Natural or Artificial Opening Endoscopic, Diagnostic (ICD-10-PCS; principal; 2017-02-05 08:00)
DX: F10.229 Alcohol dependence with intoxication, unspecified (principal); K29.71 Gastritis, unspecified, with bleeding; E46 Unspecified protein-calorie malnutrition; N17.9 Acute kidney failure, unspecified; E87.0 Hyperosmolality and hypernatremia; I50.22 Chronic systolic (congestive) heart failure; K86.0 Alcohol-induced chronic pancreatitis; F10.27 Alcohol dependence with alcohol-induced persisting dementia; Y90.6 Blood alcohol level of 120-199 mg/100 ml; F10.239 Alcohol dependence with withdrawal, unspecified; K70.11 Alcoholic hepatitis with ascites; E86.0 Dehydration; K70.40 Alcoholic hepatic failure without coma; I11.0 Hypertensive heart disease with heart failure; E03.9 Hypothyroidism, unspecified; K21.9 Gastro-esophageal reflux disease without esophagitis; G47.33 Obstructive sleep apnea (adult) (pediatric); Z68.23 Body mass index [BMI] 23.0-23.9, adult; D69.6 Thrombocytopenia, unspecified; E83.51 Hypocalcemia; Z91.19 Patient's noncompliance with other medical treatment and regimen; I34.0 Nonrheumatic mitral (valve) insufficiency; G20 Parkinson's disease; F17.200 Nicotine dependence, unspecified, uncomplicated; T88.59XA Other complications of anesthesia, initial encounter; Y83.8 Other surgical procedures as the cause of abnormal reaction of the patient, or of later complication, without mention of misadventure at the time of the procedure; R00.1 Bradycardia, unspecified; I95.9 Hypotension, unspecified; K44.9 Diaphragmatic hernia without obstruction or gangrene; K29.80 Duodenitis without bleeding; E87.6 Hypokalemia

== ENCOUNTER 2017-03-25 23:55 | Emergency (ER) | payer MEDICAID ==
[2017-02-05 14:00] VITALS: BMI 22.9
[~2017-03-25 23:55] MED LIST: ASPIRIN81 MG PO; CARAFATE1 G/10 ML PO; COREG 3.1253.125 MG PO; FOLIC ACID1 MG PO; GEODON20 MG PO; LEXAPRO10 MG PO; LIPITOR80 MG PO; LISINOPRIL5 MG PO; PEPCID20 MG PO; PROTONIX40 MG PO; ROCALTROL0.25 MCG PO; SYNTHROID75 MCG PO; THERAGRAN M [BK1 TAB PO; THIAMINE HCL50 MG PO; VITAMIN B-12100 MCG PO; Vitamin D PO
== END 2017-03-26 00:33 | disposition left against medical advice (07) ==
LOC: D.ER 23:55
DX: R07.9 Chest pain, unspecified (principal); F10.10 Alcohol abuse, uncomplicated; F17.200 Nicotine dependence, unspecified, uncomplicated; I48.91 Unspecified atrial fibrillation

== ENCOUNTER 2017-04-01 09:42 | Inpatient (IN) | payer MEDICAID | END 2017-04-08 15:19 | disposition home or self-care (01) | DRG 286 | LOC: D.ER 09:42 → D.SDCHOLD 12:51 → D.M2 16:41 | PROC: 4A023N7 Measurement of Cardiac Sampling and Pressure, Left Heart, Percutaneous Approach (ICD-10-PCS; principal; 2017-04-05) | PROC: B211YZZ Fluoroscopy of Multiple Coronary Arteries using Other Contrast (ICD-10-PCS; 2017-04-05) | PROC: B215YZZ Fluoroscopy of Left Heart using Other Contrast (ICD-10-PCS; 2017-04-05) | DX: I11.0 Hypertensive heart disease with heart failure (principal); J18.9 Pneumonia, unspecified organism; J96.01 Acute respiratory failure with hypoxia; J44.1 Chronic obstructive pulmonary disease with (acute) exacerbation; K86.0 Alcohol-induced chronic pancreatitis; J44.0 Chronic obstructive pulmonary disease with (acute) lower respiratory infection; J98.11 Atelectasis; N17.9 Acute kidney failure, unspecified; I50.30 Unspecified diastolic (congestive) heart failure; E87.6 Hypokalemia; F10.10 Alcohol abuse, uncomplicated; K70.40 Alcoholic hepatic failure without coma; D50.9 Iron deficiency anemia, unspecified; E03.9 Hypothyroidism, unspecified; K70.10 Alcoholic hepatitis without ascites; E83.51 Hypocalcemia; E83.42 Hypomagnesemia ==